=== PATIENT | female | born 1940 | race Caucasian/White ===

== ENCOUNTER 2021-07-04 14:33 | Outpatient (CLI) | payer MEDICARE, SELFPAY ==
--- NOTE | 2021-07-04 14:54 | XR_ITS ---
WS: [id number] DEXA (DUAL ENERGY X-RAY ABSORPTIOMETRY) Bone mineral density was performed using a [employer] machine. HISTORY: ASYMPTOMATIC MENOPAUSAL STATE COMPARISON: None available. Lumbar spine BMD (L1-L4): 1.008 g/cm2 T score: -1.4 Z score: 0.6 Total hip BMD: Left: 0.894 g/cm2. T score: -0.9 Z score: 1.2 Right: 0.870 g/cm2. T score: -1.1 Z score: 1.0 10 year probability of a major osteoporotic fracture is 22%. XR/XR DEXA axial skeleton* [id number] IMPRESSION: OSTEOPENIA based upon the WHO classification for females.
== END 2021-07-04 14:34 | disposition home or self-care (01) ==
PROVIDERS: Visit Provider Nurse Practitioner Family
DX: Z78.0 Asymptomatic menopausal state (principal); M85.80 Other specified disorders of bone density and structure, unspecified site
CPT/HCPCS: 77080

== ENCOUNTER 2025-02-16 14:36 | Outpatient (CLI) | payer MEDICARE, SELFPAY ==
--- NOTE | 2025-02-16 14:42 | XR_ITS ---
WS: [id number] SCREENING DEXA SCAN [facility] CLINICAL INFORMATION: POST MENOPAUSAL COMPARISON: 2020 FINDINGS: The L1-L4 bone mineral density measures 0.983 g/cm2. This corresponds to a T score score of -1.6 and Z score of 0.4. Left femoral neck bone mineral density measures 0.846 g/cm2. This corresponds to a T score of -1.3 and Z score of 1.0. Right femoral neck bone mineral density measures 0.852 g/cm2. This corresponds to a T score -1.2of and Z score of 1.0. Mean femoral neck bone mineral density measures 0.849 g/cm2. This corresponds to a T score of -1.3 and Z score of 1.0. XR/XR DEXA axial skeleton* [id number] IMPRESSION: Osteopenia lumbar spine. Osteopenia femoral necks. Patient's FRAX calculated 10 year probability for major osteoporotic fracture i s 23.8% and osteoporotic hip fracture is 14.8%.
== END 2025-02-16 14:37 | disposition home or self-care (01) ==
PROVIDERS: PCP Nurse Practitioner Family; Visit Provider Nurse Practitioner Family
DX: Z78.0 Asymptomatic menopausal state (principal); M85.89 Other specified disorders of bone density and structure, multiple sites
CPT/HCPCS: 77080